=== PATIENT | female | born 1960 | race Caucasian/White ===

== ENCOUNTER 2025-09-17 07:33 | Inpatient (IN) | payer MEDICARE, SELFPAY ==
[2025-09-17] VITALS (11 sets, daily range): BP systolic 116–165; BP diastolic 64–105; BMI 35.5; BMI 34.6
[2025-09-17] MEDS: ATIVAN 1 MG IV (03:17)
[2025-09-17] MEDS: NSS (PRESERVATIVE FREE) 0.5 ML IV (03:18)
[2025-09-17 03:24] LABS: Hematocrit 42.6 % (37.0-47.0); Hemoglobin 12.9 g/dL (12.0-16.0); Mean Corp Hgb Conc. 30.3 g/dL (33.0-37.0); Mean Corpuscular Volume 91.8 fL (81.0-99.0); Nucleated Red Blood Cells % 0 %; Platelet Count 336 10^3/uL (130-400); Red Cell Dist. Width 13.3 % (11.5-14.5)
[2025-09-17 03:34] LABS: ALT (SGPT) 23 U/L (0-35); AST (SGOT) 25 U/L (14-36); Albumin 4.4 g/dl (3.5-5.0); Alkaline Phosphatase 70 U/L (38-126); Blood Urea Nitrogen 16 mg/dl (7-17); Calcium 9.4 mg/dl (8.4-10.2); Carbon Dioxide 37 mmol/L (22-30); Chloride 95 mmol/L (98-107); Estimated Creatinine Clearance 102 ml/min; Glucose 127 mg/dl (70-99); Potassium 4.6 mmol/L (3.5-5.1); Sodium 138 mmol/L (135-145); Total Protein 7.1 g/dl (6.3-8.2); eGFR > 60.00
[2025-09-17 03:35] LABS: INR 0.88; PT 12.1 Sec (11.4-14.6)
[2025-09-17 03:56] LABS: Troponin I < 0.012 ng/ml
[2025-09-17 04:04] LABS: TSH 2.07 uIU/ml (0.47-4.68)
[2025-09-17] MEDS: DECADRON 10 MG IV (05:43)
[2025-09-17] MEDS: DUONEB 3 ML INH ×4 (05:44→18:00)
--- NOTE | 2025-09-17 05:52 | ED.GENMED ---
History of Present Illness
General
Chief Complaint: Breathing Problem
Source: patient and ambulance crew
Exam Limitations: none
Time Seen by Provider: 09/17/25 02:45
Nursing documentation reviewed up to this point in time: agreed with
History of Present Illness
History of Present Illness:
Note:
CHIEF COMPLAINT(S)
Difficulty breathing and chest discomfort.
HISTORY OF PRESENT ILLNESS
The patient is a 65-year-old male with a history of Chronic Obstructive Pulmonary Disease (COPD) who presents with difficulty breathing and discomfort in the chest. The patient reports cessation of smoking nine months prior. Symptoms began after
consuming an excessive amount of cookies, specifically finishing an entire box. The patient describes the chest discomfort as mild, located straight across the chest, extending to the neck, throat, and right arm and shoulder. The patient is on home
oxygen therapy, typically using two and a half liters per minute but has increased it to three and a half liters per minute due to worsening symptoms. He denies any recent hospitalizations or surgeries since 2007.
SOCIAL HISTORY
The patient reports smoking cessation nine months ago. He lives alone.
ALLERGIES
Sulfate.
PHYSICAL EXAM
General: Alert, no acute distress.
Skin: Warm, dry.
Head: Normocephalic, atraumatic.
Neck: Supple, trachea midline.
Eye Ears, nose, mouth and throat: Oral mucosa moist.
Cardiovascular: Normal peripheral perfusion, No edema.
Respiratory: Respirations are unlabored. Wheezing in all lung milner.
Gastrointestinal: Abdomen nondistended
Back: Normal range of motion, Normal alignment.
Musculoskeletal: Normal ROM, normal strength.
Neurological: Alert and oriented to person, place, time, and situation, No focal neurological deficit observed.
Psychiatric: Cooperative, appropriate mood & affect.
PROBLEM LIST
Acute:
- Difficulty breathing
- Chest discomfort
Chronic:
- Chronic Obstructive Pulmonary Disease (COPD)
PLAN
- Monitor oxygen levels and adjust home oxygen therapy as necessary.
- Assess and monitor for progression of respiratory symptoms.
- Consider dietary modifications and counseling due to reported excessive consumption of cookies.
DIFFERENTIAL DIAGNOSIS
The Differential Diagnosis includes, in no particular order and is not limited to:
1. Exacerbation of Chronic Obstructive Pulmonary Disease (COPD)
2. Gastroesophageal reflux disease (GERD)
3. Acute Coronary Syndrome
4. Pulmonary Embolism
5. Pneumonia
6. Heart Failure
7. Anxiety Disorder
8. Musculoskeletal pain
9. Costochondritis
10. Heartburn/acid reflux
Disposition:
SUMMARY OF ENCOUNTER
The patient is a 65-year-old female with a history of COPD who presented to the emergency department with difficulty breathing consistent with exacerbation of her COPD. She was administered two albuterol nebulizer treatments and one dose of
ipratropium bromide prior to a third dose of ipratropium bromide. Despite these treatments, the patient continued to wheeze and experience labored breathing, necessitating further intervention.
DISPOSITION
Admit
ASSESSMENT
Acute exacerbation of Chronic Obstructive Pulmonary Disease (COPD)
EMERGENCY TREATMENTS ADMINISTERED
The patient received two albuterol nebulizations and one ipratropium bromide nebulization followed by an additional ipratropium bromide nebulization due to persistent symptoms.
PLAN
Admit the patient to the hospital for management of COPD exacerbation, monitor respiratory status, and continue treatment with bronchodilators and any other necessary supportive care.
MEDICATION RECONCILIATION
- Administered: Albuterol nebulization
- Administered: Ipratropium bromide nebulization
MEDICAL DECISION MAKING
- Number and Complexity of Problems Addressed: Chronic conditions affecting care include COPD exacerbation.
- Data:
- Category 1: Reviewed emergency treatment response to bronchodilator therapy (albuterol and ipratropium bromide).
- Risk: The decision to admit the patient due to the acute exacerbation of COPD, indicating a high risk of morbidity and necessity for continued inpatient management.
DIAGNOSIS
Chronic Obstructive Pulmonary Disease (COPD) exacerbation, ICD-10: J44.1
Phy Exam
Physical Exam
Physical Exam:
.
Scores
Heart Failure Risk
Heart Failure Risk Score: Not Applicable
Course
Orders/Labs/Results
Orders:
Orders
09/17/25 02:53
EKG [Electrocardiogram (*1)] Urgent
Reason for Study: Chest Pain
EKG- Treatment ONCE
09/17/25 03:06
Cardiac Monitoring- Treatment ONCE
Lorazepam [Ativan] 1 mg IV NOW STA
CR Chest - 2 Views Urgent
Comment:
Reason For Exam: cp
09/17/25 03:12
Complete Blood Count/With Diff Urgent
Comprehensive Metabolic Panel Urgent
NT-proBNP Urgent
Prothrombin Time Urgent
TSH Urgent
Troponin I Urgent
09/17/25 03:15
0.9% Sodium Chloride [Nss (Preservative Free)] 0.5 ml IV ONCE ONE
09/17/25 05:40
Dexamethasone Sod Phosphate [Decadron] 10 mg IV NOW STA
Ipratropium/Albuterol Sulfate [Duoneb] 3 ml INH R NOW ONE
09/17/25 Breakfast
Cholesterol Lowering
At Your Request: Full Participation
Cholesterol Lowering: Sodium, 2 Gram
09/17/25 07:06
Admit/Transfer Patient As Directed
Co-Sign Provider:
Level of Care: Inpatient admission
Assign to:: Medical/Surgical
Physician / Group: Eleazar
Diagnosis: COPD exacerbation
Reason for Hospitalization: COPD exacerbation
Expected length of stay greater than two midnights?: Yes
ELOS- Estimated Length of Stay in days: 2
I certify the patient meets the requirements for IP care: Yes
PRN Pain Medication Management As Directed
May give lesser potent ordered pain med per pt: Yes
preference::
Protocol:: Medication orders for pain may be administered in a
manner that supports deferring to patient preference
when the pt is:
- Requesting an ordered lesser potent pain medication.
Least to most potent pain medications are defined
as: acetaminophen < NSAID < tramadol < opioids
(morphine, oxycodone, hydromorphone).
- Requesting a lesser dose of the same medication IF
ORDERED.
- Requesting a less intrusive route of administration
if both routes are prescribed by the provider (PO <
IV).
09/17/25 07:07
Code Status As Directed
Resuscitation Status: Full Code
09/17/25 07:24
COVID-19 Antigen Stat
Source: Nasal Swab
D-Dimer Stat
Influenza A+B Rapid Molecular Stat
ADONAY Source: Nasal Swab
Specimen Description:
09/17/25 10:20
Acetaminophen [Tylenol] 650 mg PO Q4HPRN PRN
Albuterol Nebs [Ventolin Nebules] 2.5 mg INH R Q3HPRN PRN
Bisacodyl [Dulcolax] 10 mg RECTAL [id number] PRN
Budesonide/Formoterol 160/4.5 [Symbicort 160/4.5 Mcg Inhaler] 2 puff INH R BID
Docusate W/Senna [Senokot-S] 1 tablet PO BIDPRN PRN
Guaifenesin/Dextromethorphan [Robitussin Dm] 5 ml PO Q4HPRN PRN
Ipratropium/Albuterol Sulfate [Duoneb] 3 ml INH R QID
Ketorolac [Toradol] 10 mg IV Q6HPRN PRN
Lorazepam [Ativan] 0.5 mg PO DAILY PRN
Mag Hydrox/Al Hydrox/Simeth [Maalox] 30 ml PO Q6HPRN PRN
MethylPREDNISolone PF [Solu-Medrol Pf] 40 mg IV Q6H
Ondansetron Injectable [Zofran] 4 mg IV Q6HPRN PRN
Polyethylene Glycol Powder [Miralax] 17 grams PO DAILYPRN PRN
09/17/25 10:20
Activity As Directed
Activity Level: With Assistance
Change Attending Physician As Directed
Change attending physician to: Dr. Wong Francois
Vital Signs As Directed
Frequency: Per unit guidelines
O2 Therapy [RESP] Routine
Nasal Cannula Liter Flow: 2 LPM
Titrate/Wean O2 to maintain O2 sat greater than (%): 90
Pulse Ox/cont/shift [RESP] Routine
Quantity: 1
DX Deep Vein Thrombosis Video Routine
09/17/25 18:00
Enoxaparin Sodium [Lovenox] 40 mg SC QPM
09/18/25 06:13
Basic Metabolic Panel IN AM
Complete Blood Count/No Diff IN AM
Abnormal Lab Results
09/17/25 09/17/25
03:12 07:24
WBC 14.6 H 10^3/uL
(4.8-10.8)
MCHC 30.3 L g/dL
(33.0-37.0)
Abs Immat Gran (auto) 0.1 H 10^3/uL
(0-0.05)
Absolute Neuts (auto) 10.9 H 10^3/uL
(1.4-6.5)
Absolute Monos (auto) 1.0 H 10^3/uL
(0.1-0.6)
Lymphocytes % 15.1 L %
(20.5-51.1)
D-Dimer 0.56 H ug/mlFEU
(0.00-0.50)
Chloride 95 L mmol/L
(98-107)
Carbon Dioxide 37 H mmol/L
(22-30)
Creatinine 0.4 L mg/dL
(0.6-1.0)
Glucose 127 H mg/dl
(70-99)
09/17/25 03:12
09/17/25 03:12
Vital Signs
Initial and Last Documented VS:
Initial Vital Signs
Temp Pulse Resp BP Pulse Ox
97.9 F 107 18 149/105 100
09/17/25 02:46 09/17/25 02:46 09/17/25 02:46 09/17/25 02:46 09/17/25 02:46
Last Documented Vital Signs
Temp Pulse Resp BP Pulse Ox
98 F 82 16 126/76 97
09/18/25 23:23 09/18/25 23:23 09/18/25 23:23 09/18/25 23:23 09/18/25 23:23
*Pulse Oximetry
SaO2: 96
Nasal Cannula flow liters per minute: 6
Patient hypoxic: no
*Critical Care Note
Total Time (30-74mins, 75-104mins- exclusive of procedures): Not Applicable
ED Attending Note
-
Portions of this chart may have been created with voice recognition software.� Occasional wrong word or��sound alike� substitutions may have occurred due to the inherent limitations of voice recognition software.
Discharge Plan
Departure
Patient Disposition: Admit
Date of Disposition: 09/17/25
Time of Disposition: 05:52
Presentation/result/management discussed w/ accepting MD/DO: Hospitalist
Discharge Problem:
Acute exacerbation of chronic obstructive pulmonary disease (COPD)
Interventions
Interventions:
*General Assessment Last Done: 09/17/25 02:46
*Neglect/Abuse Screening Last Done: 09/17/25 02:46
*ED Influenza Vaccine History Last Done: 09/17/25 02:46
[facility] Fall Risk Assessment Tool Last Done: 09/17/25 03:03
*Risk Screen - Suicide (C-SSRS) Last Done: 09/17/25 02:46
*Nursing Disposition Last Done: 09/17/25 10:10
ED- Cardiac Assessment Last Done: 09/17/25 05:30
ED- Pulmonary Assessment Last Done: 09/17/25 05:30
Discharge Date and Time
Discharge Date/Time: 09/17/25 10:10
--- NOTE | 2025-09-17 06:55 | HPS.HSE ---
Addendum entered and electronically signed by Anabel Bush MD 09/17/25 07:23:
Admitting to [facility] pending abg results which may reveal need for bipap and upgrading to IMU
Original Note:
Family Physician
-
Family Physician: * NONE
Chief Complaint
-
Shortness of breath
History of Present Illness
Patient is a 65-year-old female with past medical history notable for COPD, hyperlipidemia, mitral valve prolapse, history of intermittent palpitations with no abnormalities on EKG on echo who presents to the emergency department with 1 day of
worsening respiratory symptoms.
Patient is not aware of any sick contact. She developed worsening shortness of breath compared to baseline. At baseline she states that she is on her oxygen concentrator at home. She has been using it for several months since she quit smoking
earlier this year. Patient is a long-term smoker prior to that and she started smoking she was she was at age 13. She has a diagnosis of asthma somewhere on her chart for she denies history of asthma. She states she uses Combivent as well as
albuterol inhalers. Despite use of her inhalers she has not been getting better recently.
She reported that she started having pain in bilateral shoulder blades yesterday. This associated with worsening shortness of breath and wheezing. She reports that she does have a cough but it is productive of scant amount of clear phlegm. She
has not had any fevers or chills. She is not having any nausea or vomiting.
In the emergency department she was afebrile with temp of 91.9, blood pressure was 127/68 with a pulse rate of 102. Respiratory rate was 23. She is satting 97% on 4 L. X-ray showed no clear infiltrates, pulmonary edema or pleural effusion. ECG
with sinus tachycardia rate of 106 otherwise unremarkable. Troponin was negative. BNP was negative.
White count was 14.6, hemoglobin 12.9 and plate count of 236. Electrolytes notable for a bicarb of 37 otherwise unremarkable. Glucose was normal.
Medical History
Past Medical History
Past Medical History: Reports COPD (Currently on oxygen concentrator continuously at home.), Hypercholesterolemia and Valvular Disease (Mitral valve prolapse)
Past Surgical History: Reports ( x 2)
Social History
Tobacco: Former Smoker (Smoked since age 13, quit earlier this year)
Alcohol: None
Drug: None
Living: With Family
Family History
Family History: Not pertinent
Allergies / Home Medications
Allergies reflects when Allergies were last updated in [email or web address].
Home Medications with original date entered in [email or web address]
Allergy/Medication List:
Allergies
Allergy/AdvReac Type Severity Reaction Status Date / Time
Sulfa (Sulfonamide Allergy Unknown Unknown Verified 09/17/25 03:11
Antibiotics)
Home Medications
albuterol sulfate 90 mcg/actuation aerosol inhaler 2 inh inhalation Q6H PRN wheezing 09/17/25
ipratropium 20 mcg-albuterol 100 mcg/actuation mist for inhalation (Combivent Respimat) 2 puff inhalation Q6H 09/17/25
umeclidinium 62.5 mcg-vilanterol 25 mcg/actuation powdr for inhalation (Anoro Ellipta) inhalation 09/17/25
Review of Systems
-
Constitutional: Reports No Symptoms
EENT: Reports No Symptoms
Respiratory: Reports No Symptoms
Cardiac: Reports No Symptoms
Abdomen/GI: Reports No Symptoms
: Reports No Symptoms
Musculoskeletal: Reports No Symptoms
Skin: Reports No Symptoms
Neurological: Reports No Symptoms
Endocrine: Reports No Symptoms
Hematologic/Lymphatic: Reports No Symptoms
Psych: Reports No Symptoms
Physical Exam
Vital Signs
Vital Signs
Temp Pulse Resp BP Pulse Ox
97.9 F 102 23 127/68 96
09/17/25 02:46 09/17/25 06:00 09/17/25 06:00 09/17/25 06:00 09/17/25 06:00
Physical Exam
General: Well Developed, Comfortable and Respiratory Distress
HEENT: NormoCephalic, Moist mucous membranes, Atraumatic and Oxygen
Respiratory: Wheezes
Cardiac: S1/S2, Regular Rhythm and Tachycardia; No Murmur or Rub
GI: Soft, Non Tender, Non Distended and Normal Bowel Sounds; No Organomegaly
Rectal: Deferred by Provider
Genito-urinary: Deferred by me
Musculoskeletal: No Clubbing, No Cyanosis and No Edema
Skin: No Rash
Neuro: Awake, Oriented and Nonfocal/grossly intact
Psych: Calm
Laboratory Results
-
09/17/25 03:12
09/17/25 03:12
Laboratory Results
PT 12.1 Sec (11.4-14.6) 09/17/25 03:12
INR 0.88 09/17/25 03:12
Total Bilirubin 0.4 mg/dl (0.2-1.3) 09/17/25 03:12
AST 25 U/L (14-36) 09/17/25 03:12
ALT 23 U/L (0-35) 09/17/25 03:12
Alkaline Phosphatase 70 U/L (38-126) 09/17/25 03:12
Troponin I < 0.012 ng/ml 09/17/25 03:12
Data Reviewed
-
Diagnostic Radiology: Image Personally Visualized and interpreted
Medical Tests (Nuc Med, Echo, EKG etc): Image Personally Visualized and interpreted
Lab Data: Labs Reviewed by me
Old Records: Reviewed
Impression/Plan
-
IMPRESSION:
This is a 67-year-old female with past medical history of COPD on oxygen at home who presents to the department with worsening shortness of breath and a nonproductive cough. No fevers or chills. X-ray without any acute infiltrates. She is
currently satting 97% on 4 L. She still has some mild increased work of breathing and persistent wheezes bilaterally. She also has decreased breath sounds. Serum bicarb is elevated at 37 suggestive of chronic CO2 retention. She is easily
arousable but somewhat somnolent at this time. She does not use BiPAP at home.
PLAN:
COPD exacerbation�no clear trigger. Likely for viral etiology. No productive cough. Did complain of pleurit pain in her shoulder blades which brought her in
� Admit to telemetry for now
� Obtain ABG, d-dimer
� Check COVID and flu test
� Continue with IV Solu-Medrol 40 mg every 6 hours
� Continue albuterol every 3 hours as needed wheezing
� Continue DuoNeb every 6 hours standing
� Continue patient's home Combivent for now
� Will start azithromycin p.o. 500 mg daily
� Supplemental oxygen to keep sats greater than 93%
Hyperlipidemia
� Patient states that she is on supplements and is intolerant of all statins and ezetimibe and cannot afford PCSK9 inhibitor
� Low-cholesterol diet for now
DVT prophy�Lovenox subcu
CODE STATUS�full code
--- NOTE | 2025-09-17 07:30 | RESPNOTE ---
attempted ABG collection. pt refused procedure, stating ' take it out, it hurts'
ABG not collected.
RN taking care of pt notified.
[2025-09-17 07:48] LABS: COVID-19 Antigen Negative (Negative)
[2025-09-17 08:05] LABS: D-Dimer 0.56 ug/mlFEU (0.00-0.50)
--- NOTE | 2025-09-17 08:26 | PHANOTE ---
MED REC NOTE - ATTEMPTED TO CONFIRM PT MEDS. PT NOT IN [facility] & UNABLE TO ANSWER QUESTIONS. PUT IN MOST RECENT FILLED MEDS FROM PHARMACY RECORDS - [facility]
--- NOTE | 2025-09-17 08:30 | EDCM ---
Chart reviewed
CM attempted to talk with pt at ED bedside to complete IA but pt declined at this time
[2025-09-17] MEDS: SOLU-MEDROL PF 40 MG IV (10:54)
[2025-09-17] MEDS: ATIVAN 0.5 MG PO (10:54)
[2025-09-17] MEDS: SYMBICORT 160/4.5 MCG INHALER 2 PUFF INH (10:56)
[2025-09-17] MEDS: DUONEB INH ×3 (11:16→22:30)
--- NOTE | 2025-09-17 12:00 | PTCARENOTE ---
Patient uncooperative with med rec and admission questions.
--- NOTE | 2025-09-17 12:15 | PTCARENOTE ---
Several prescription pill bottles noted sitting out on top of patient's open bag. RN asking patient about home medications. Patient becoming very upset, stating that staff is invading her privacy. RN explaining that hospital policy requires that no
home medications be left at the bedside. Patient stating she is leaving. Patient stating that she had the medications hidden because she wants to be able to take her own medications when she wants to. RN contacting [facility] manager nursing home.
Director on unit to explain hospital policy to patient. Dr. Francois also at bedside. Patient then agreeable with sending home medications to pharmacy. Patient also agreeable with sending valuable to be locked with security. Patient now resting in
bed.
[2025-09-17] MEDS: VENTOLIN NEBULES 2.5 MG INH (12:43)
--- NOTE | 2025-09-17 12:55 | W.PN.HOSP.TC ---
Today's Communication/Plan
-
See plan
Assessment / Plan
Assessment / Plan
Impression.
Acute on chronic hypoxemic respiratory failure secondary to COPD exacerbation
Acute COPD exacerbation secondary to mild bronchitis.
Severe anxiety and benzodiazepine dependence
Dyslipidemia
Prediabetes
Obesity due to excess of calories with BMI of 34.6
Plan
Acute on chronic hypoxemic respiratory failure secondary to COPD exacerbation.
Chronic hypoxic possibly hypercarbic (chronic compensatory metabolic alkalosis) respiratory failure on home O2 at 2 to 3 L
Patient reports worsening shortness of breath over the last 2 to 3 days prior to presentation with persistent wheezing. Mild nonproductive cough. Denies fever.
Home regimen Anoro and rescue inhaler
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
Chest x-ray with bilateral interstitial pattern, possibly chronic. No old studies to compare.
COVID and influenza negative
Mild leukocytosis
No evidence for respiratory distress, although extremely anxious. Currently on 4 L of nasal cannula oxygen.
Exam with bilateral expiratory wheezing.
Check ABG
Start empiric coverage with Zithromax.
Continue pulse dose of corticosteroids transition off Solu-Medrol to Decadron. Continue slow taper
[place]
Mucolytic
If no reasonable improvement over the next 24 to 48 hours, consider pulmonology evaluation and additional imaging with CT
Bilateral diffuse interstitial pattern infiltrate on chest x-ray.
No prior history of cardiovascular disease
No evidence for volume overload.
Normal pro CHF BNP and troponin
Follow-up imaging as above
Severe anxiety with benzodiazepine dependence.
Reports average dose of alprazolam close to 1 mg prior to admission.
Start alprazolam 0.5 mg every 8 hours as needed and titrate.
Prediabetes.
Check hemoglobin A1c
Expected hyperglycemia with corticosteroids
Start basal bolus protocol
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
DVT prophylaxis with Lovenox
Anticipated Discharge: 24 - 48 hours
Subjective/Interval History
-
Date of Service: September 17, 2025
Objective Data
-
Labs:
Laboratory Results
09/17/25 09/17/25
03:12 07:06
WBC 14.6 H
Hgb 12.9
Hct 42.6
Plt Count 336
PT 12.1
INR 0.88
HCO3 Pending
Sodium 138
Potassium 4.6
Chloride 95 L
Carbon Dioxide 37 H
BUN 16
Creatinine 0.4 L
Glucose 127 H
Calcium 9.4
Total Bilirubin 0.4
AST 25
ALT 23
Alkaline Phosphatase 70
Vital Signs:
Vital Signs
Temp Pulse Resp BP Pulse Ox
97.7 F 102 20 122/74 92
09/17/25 10:30 09/17/25 12:46 09/17/25 12:46 09/17/25 10:30 09/17/25 12:46
Physical Exam
-
General: Well Developed and No Apparent Distress
HEENT: Normocephalic, Atraumatic and Moist Mucous Membranes
Respiratory: Wheezes (Diffuse expiratory)
Cardiac: Regular Rhythm and S1/S2; Negative Murmur, Rub or Gallop
GI: Soft, Nontender, Nondistended and Normal Bowel Sounds; Negative Organomegaly
Rectal: Deferred by Provider
Musculoskeletal: No Clubbing, No Cyanosis and No Edema
Skin: Negative Rash
Neuro: Awake, Alert, Oriented and Nonfocal/Grossly Intact
Psych: Anxious
[2025-09-17] MEDS: ZITHROMAX PO (16:25)
--- NOTE | 2025-09-17 16:34 | CM ---
CM received consult to see patient to provide Advance Directive information. CM attempted to see patient in her room but she was sleeping. Will follo up on 09/18.
[2025-09-17] MEDS: SYMBICORT 160/4.5 MCG INHALER INH (17:46)
[2025-09-17] MEDS: XANAX 0.5 MG PO (18:00)
[2025-09-17] MEDS: LOVENOX SC (18:23)
[2025-09-17] MEDS: DECADRON 4 MG IV (18:23)
[2025-09-17 18:29] LABS: Glucose - Point of Care 210 mg/dl (70-99)
[2025-09-17] MEDS: NOVOLOG FLEXPEN-LOW RESISTANCE 2 UNITS SC (19:23)
--- NOTE | 2025-09-17 22:37 | PTCARENOTE ---
Addendum entered by Khoa Montemayor RN 09/18/25 02:40:
RN entered room to inquire if patient wanted to take 0200 Decadron as pt said she will think about it and let me know when it is time. Upon asking initially, pt agreeable to Decadron and requested Xanax as well. As nurse went to retrieve said
medications, pt yelled out, 'actually what time is your shift over I want to wait to take the medication until you are gone.' RN educated pt that another nurse can administer medication. Pt agreeable. This RN asked RN Kolton to retrieve medication and
administer. This RN entered room with RN Kolton to explain he will administer her medications, pt proceeded to yell, 'get out of here you can go bye bye.' Pt then refused Decadron and would only take her Xanax for RN Kolton once this RN left the room.
Nursing air cargo ground crew supervisor Candida made aware.
Original Note:
This RN performed rounds at change of shift. Upon finishing assessment on pt, RN made pt aware that a dose of Decadron will be due for administration at 0200. Pt started questioning this RN on statistics and percentages of pts on medication and
saying she does not trust it. This RN educated pt about medication and its usage but that statistical percentages unaware of and cannot give false information if unknown. Pt stated to RN, 'look at you with your back against the wall now when you
don't know percentages of pts on this drug.' Pt then educated this was not appropriate therapeutic communication and again that this RN cannot give false info if unaware of a statistic. Pt then inquiring about Xanax and next dose. Pt educated that
next dose will be 0200 as it was given at 1800 and medication is q8. Pt called this RN back into room multiple times inquiring about next dose of Xanax. Each time pt educated on timing of medication by this RN. Pt used call wilhelm again, this RN went
to bedside, pt requesting nursing air cargo ground crew supervisor. YARN FINISHER already on floor asked to see pt in regards to medication. Upon entering room YARN FINISHER told by pt to leave and only nursing air cargo ground crew supervisor was to be there. Nursing air cargo ground crew supervisor Candida made aware. Captain'S Assistant and YARN FINISHER
at bedside explained to pt timing of drugs and when doses can be given.
[2025-09-17 22:43] LABS: Glucose - Point of Care 144 mg/dl (70-99)
[2025-09-18] MEDS: XANAX 0.5 MG PO (02:33)
[2025-09-18] MEDS: DECADRON IV (02:37)
[2025-09-18 07:12] LABS: Hematocrit 37.7 % (37.0-47.0); Hemoglobin 11.9 g/dL (12.0-16.0); Mean Corp Hgb Conc. 31.6 g/dL (33.0-37.0); Mean Corpuscular Volume 90.6 fL (81.0-99.0); Platelet Count 316 10^3/uL (130-400); Red Cell Dist. Width 13.4 % (11.5-14.5)
[2025-09-18 07:42] VITALS: BP 111/51
[2025-09-18 07:44] LABS: Blood Urea Nitrogen 13 mg/dl (7-17); Calcium 9.5 mg/dl (8.4-10.2); Carbon Dioxide 35 mmol/L (22-30); Chloride 97 mmol/L (98-107); Estimated Creatinine Clearance 101 ml/min; Glucose 128 mg/dl (70-99); Potassium 5.7 mmol/L (3.5-5.1); Sodium 137 mmol/L (135-145); eGFR > 60.00
[2025-09-18] MEDS: DUONEB 3 ML INH ×2 (07:56→11:17)
[2025-09-18] MEDS: SYMBICORT 160/4.5 MCG INHALER INH ×3 (07:57→20:26)
[2025-09-18 08:11] LABS: Glucose - Point of Care 118 mg/dl (70-99)
[2025-09-18] MEDS: ZITHROMAX PO (08:14)
[2025-09-18] MEDS: NOVOLOG FLEXPEN-LOW RESISTANCE SC ×2 (08:14→12:18)
--- NOTE | 2025-09-18 08:50 | W.PN.HOSP.TC ---
Today's Communication/Plan
-
Trial of Mucomyst
Assessment / Plan
Assessment / Plan
Impression.
65-year-old female with history of COPD, hyperlipidemia, mitral valve prolapse, and intermittent palpitations (normal prior EKG/echo) presents with 1 day of worsening shortness of breath.
On home O? for several months since quitting smoking earlier this year; long-term smoker since age 13.
Uses Combivent and albuterol inhalers; reports poor response recently.
Associated symptoms: bilateral shoulder blade pain, wheezing, mild productive cough with scant clear sputum.
Denies fever, chills, nausea, vomiting, or sick contacts.
ED findings:
Vitals: Afebrile (91.9�F), BP 127/68, HR 102, RR 23, SpO? 97% on 4 L NC.
CXR: No infiltrates, pulmonary edema, or effusion.
ECG: Sinus tachycardia (rate 106), otherwise normal.
Labs: WBC 14.6, Hgb 12.9, Plt 236, bicarb 37, glucose normal. Troponin and BNP negative.
Admitted under hospital service, started on IV steroid, breathing treatment, had an anxiety and was given Xanax.
Assessment/plan
Acute on Chronic Hypoxemic Respiratory Failure
Secondary to COPD exacerbation.
Chronic hypoxic, possibly hypercarbic respiratory failure with chronic compensatory metabolic alkalosis.
On home O? at 2�3 L.
Reports worsening shortness of breath for 2�3 days prior to presentation, persistent wheezing, mild nonproductive cough, denies fever.
Home regimen: Anoro and rescue inhaler.
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
Chest X-ray: Bilateral interstitial pattern, possibly chronic; no prior studies for comparison.
COVID and influenza: Negative.
Mild leukocytosis.
No evidence of respiratory distress, but patient is extremely anxious.
Currently on 4 L nasal cannula oxygen.
Exam: Bilateral expiratory wheezing.
Plan:
Continue azithromycin.
Continue pulse dose corticosteroids; transition from Solu-Medrol to Decadron with slow taper.
Short-acting beta agonist (HOLLAND).
Trial of Mucomyst
Interstitial Pattern on Chest X-ray
Bilateral diffuse interstitial infiltrates.
No prior history of cardiovascular disease.
No evidence of volume overload.
Normal pro-BNP and troponin.
Follow-up imaging as above.
Severe Anxiety with Benzodiazepine Dependence
Reports average alprazolam dose ~1 mg prior to admission.
change alprazolam 1 mg every 8 hours as needed.
Prediabetes
Check hemoglobin A1c.
Anticipate hyperglycemia due to corticosteroids.
Initiate basal-bolus insulin protocol.
Dyslipidemia
On Vascepa and fish oil prior to admission.
Hyperkalemia.
Monitor
CODE STATUS: Full code
DVT prophylaxis: Lovenox
Diet: Cardiac diet.
Disposition: Trial of Mucomyst
Total time spent on today's encounter was 55 minutes which included time spent in counseling the patient/family regarding diagnosis and treatment plan as listed above, goals of care, and symptom management. Case was discussed with nursing staff,
specialists, and care coordinators/case management. All labs and imaging personally reviewed by me. Remainder the time spent in detailed review of previous records, lab data, imaging, and other medical provider documentation.
Part of this note was created using voice recognition system. Occasional wrong word or �sound alike� substitutions may have inadvertently occurred due to the inherent limitations of voice recognition software. If noted kindly bring it to my
attention for correction.
Anticipated Discharge: 24 - 48 hours
Subjective/Interval History
-
Date of Service: September 18, 2025
Patient seen and examined at bedside, denies any chest pain , shortness of breath Improved, no abdominal pain, no nausea, no vomiting, no diarrhea or constipation.
Trial of Mucomyst
Objective Data
-
Labs:
Laboratory Results
09/18/25
06:13
WBC 10.9 H
Hgb 11.9 L
Hct 37.7
Plt Count 316
Sodium 137
Potassium 5.7 H
Chloride 97 L
Carbon Dioxide 35 H
BUN 13
Creatinine 0.4 L
Glucose 128 H
Calcium 9.5
Vital Signs:
Vital Signs
Temp Pulse Resp BP Pulse Ox
97.7 F 114 25 111/51 95
09/18/25 07:42 09/18/25 08:08 09/18/25 08:08 09/18/25 07:42 09/18/25 08:08
I&O
09/17/25 09/18/25 09/19/25
06:59 06:59 06:59
Intake Total 960 / 960
Balance 960 / 960
Physical Exam
-
General: Well Developed, Well Nourished, No Apparent Distress and Comfortable
HEENT: Normocephalic, Atraumatic, Moist Mucous Membranes, No Ptosis, PERRLA and Nose Appears Normal
Respiratory: Wheezes, Rales and Non Labored Respirations
Cardiac: Regular Rhythm and S1/S2
Breast: Deferred by me
GI: Soft, Nontender, Nondistended and Normal Bowel Sounds
Genito-urinary: No Costovertebral Tender
Musculoskeletal: No Clubbing, No Cyanosis and No Edema
Skin: Warm
Neuro: Awake, Alert, Oriented, AO x 3 and No Motor Deficits
Psych: Calm
Data Reviewed
-
Diagnostic Radiology: Image personally visualized and interpreted and Report Reviewed by me
CT Scan: Image personally visualized and interpreted and Report Reviewed by me
Ultrasound: Image personally visualized and interpreted and Report Reviewed by me
MRI: Image personally visualized and interpreted and Report Reviewed by me
Medical Tests (Nuc Med, Echo etc): Image personally visualized and interpreted and Report Reviewed by me
Labs: Labs Reviewed by me
Old Records: Reviewed
[2025-09-18] MEDS: DECADRON 4 MG IV ×2 (10:14→17:11)
[2025-09-18] MEDS: XANAX 1 MG PO ×2 (10:41→18:45)
[2025-09-18] MEDS: MUCOMYST 20% 2 ML INH (11:18)
[2025-09-18 12:07] LABS: Glucose - Point of Care 95 mg/dl (70-99)
[2025-09-18] MEDS: MAGNESIUM OXIDE 400 MG PO (13:09)
[2025-09-18 13:17] LABS: Glycohemoglobin (HgbA1c) 6.0 % (4.0-5.9)
--- NOTE | 2025-09-18 13:55 | RESPNOTE ---
Pt has an order to use own Pro-air inhaler from home and to be left bedside. Inhaler labeled and retrieved from pharmacy, pt's own inhaler left bedside. RN aware. Pt instructed to notify respiratory when needing to take rescue inhaler for scanning
and documenting purposes.
[2025-09-18] MEDS: NON-FORMULARY ITEM INH (14:05)
[2025-09-18] MEDS: DUONEB INH ×2 (14:12→20:26)
[2025-09-18 15:40] VITALS: BP 108/45
[2025-09-18 16:55] LABS: Glucose - Point of Care 184 mg/dl (70-99)
[2025-09-18] MEDS: NOVOLOG FLEXPEN-LOW RESISTANCE 1 UNITS SC (17:11)
[2025-09-18] MEDS: LOVENOX 40 MG SC (17:12)
[2025-09-18] MEDS: NON-FORMULARY ITEM 2 INH INH (18:11)
[2025-09-18 20:25] LABS: Hepatitis C Antibody Negative (Negative)
[2025-09-18 21:28] LABS: Glucose - Point of Care 130 mg/dl (70-99)
[2025-09-18 23:23] VITALS: BP 126/76
[2025-09-19] MEDS: DECADRON 4 MG IV (03:23)
[2025-09-19] MEDS: NON-FORMULARY ITEM INH ×3 (04:21→20:17)
[2025-09-19 07:18] VITALS: BP 130/83
[2025-09-19 07:50] LABS: Glucose - Point of Care 135 mg/dl (70-99)
[2025-09-19] MEDS: ZITHROMAX PO ×2 (08:24→08:27)
[2025-09-19] MEDS: NOVOLOG FLEXPEN-LOW RESISTANCE SC ×2 (08:24→12:25)
[2025-09-19] MEDS: MAGNESIUM OXIDE 400 MG PO (08:24)
[2025-09-19] MEDS: NON-FORMULARY ITEM 2 INH INH (08:35)
[2025-09-19] MEDS: DUONEB 3 ML INH ×3 (08:53→20:17)
[2025-09-19] MEDS: SYMBICORT 160/4.5 MCG INHALER 2 PUFF INH ×2 (08:54→20:17)
[2025-09-19] MEDS: XANAX 1 MG PO ×2 (09:30→17:35)
[2025-09-19 09:39] LABS: Blood Urea Nitrogen 15 mg/dl (7-17); Calcium 9.4 mg/dl (8.4-10.2); Carbon Dioxide 35 mmol/L (22-30); Chloride 98 mmol/L (98-107); Estimated Creatinine Clearance 101 ml/min; Glucose 139 mg/dl (70-99); Potassium 5.3 mmol/L (3.5-5.1); Sodium 137 mmol/L (135-145); eGFR > 60.00
[2025-09-19] MEDS: DECADRON IV (10:29)
--- NOTE | 2025-09-19 11:15 | CM ---
CM met with patient at bedside. IA completed. Patient is being treated for acute on chronic hypoxemic respiratory failure. She lives alone in a 3 story house(resides on 2nd and 3rd floors). Prior to hospitalization she was independent with
ambulation using a cane and independent with self-care. She has home O2 through [employer]. She has a supportive son. Her son will provide transportation home when discharged. She is agreeable to home health. She is also interested in getting a
RW.
PCP: Dr. Charline Garrison
Pharmacy: [facility] in [place]
Plan: home, home health
[2025-09-19] MEDS: DUONEB INH (11:28)
--- NOTE | 2025-09-19 11:41 | PTCARENOTE ---
Pt OOB to [facility] - dyspneic on exertion. Breathing unlabored at rest. 93% on 3L NC. Pt feeling very anxious and relates it to steroids - hospitalist changed steroids from IV Decadron to PO prednisone. Pt asking for SNIFF test while here - pt
informed that per hospitalist this test only done outpatient.
[2025-09-19 12:13] LABS: Glucose - Point of Care 148 mg/dl (70-99)
[2025-09-19] MEDS: DELTASONE 50 MG PO (12:29)
--- NOTE | 2025-09-19 14:12 | W.PN.HOSP.TC ---
Today's Communication/Plan
-
Wean steroid to oral prednisone.
CTA chest shows no PE
Assessment / Plan
Assessment / Plan
Impression.
65-year-old female with history of COPD, hyperlipidemia, mitral valve prolapse, and intermittent palpitations (normal prior EKG/echo) presents with 1 day of worsening shortness of breath.
On home O? for several months since quitting smoking earlier this year; long-term smoker since age 13.
Uses Combivent and albuterol inhalers; reports poor response recently.
Associated symptoms: bilateral shoulder blade pain, wheezing, mild productive cough with scant clear sputum.
Denies fever, chills, nausea, vomiting, or sick contacts.
ED findings:
Vitals: Afebrile (91.9�F), BP 127/68, HR 102, RR 23, SpO? 97% on 4 L NC.
CXR: No infiltrates, pulmonary edema, or effusion.
ECG: Sinus tachycardia (rate 106), otherwise normal.
Labs: WBC 14.6, Hgb 12.9, Plt 236, bicarb 37, glucose normal. Troponin and BNP negative.
Admitted under hospital service, started on IV steroid, breathing treatment, had an anxiety and was given Xanax.
CT chest shows no PE
Assessment/plan
Acute on Chronic Hypoxemic Respiratory Failure
Secondary to COPD exacerbation.
Chronic hypoxic, possibly hypercarbic respiratory failure with chronic compensatory metabolic alkalosis.
On home O? at 2�3 L.
Reports worsening shortness of breath for 2�3 days prior to presentation, persistent wheezing, mild nonproductive cough, denies fever.
Home regimen: Anoro and rescue inhaler.
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
Chest X-ray: Bilateral interstitial pattern, possibly chronic; no prior studies for comparison.
COVID and influenza: Negative.
Mild leukocytosis.
No evidence of respiratory distress, but patient is extremely anxious.
Currently on 4 L nasal cannula oxygen.
Exam: Bilateral expiratory wheezing.
Plan:
Continue azithromycin.
Initiate started on IV steroid, then weaned to oral prednisone
Short-acting beta agonist (HOLLAND).
Trial of Mucomyst
CTA chest shows no PE.
Interstitial Pattern on Chest X-ray
Bilateral diffuse interstitial infiltrates.
No prior history of cardiovascular disease.
No evidence of volume overload.
Normal pro-BNP and troponin.
Follow-up imaging as above.
CTA chest shows no PE or acute
Severe Anxiety with Benzodiazepine Dependence
Reports average alprazolam dose ~1 mg prior to admission.
change alprazolam 1 mg every 8 hours as needed.
Prediabetes
Hemoglobin A1c 6.0.
Anticipate hyperglycemia due to corticosteroids.
ISS.
Dyslipidemia
On Vascepa and fish oil prior to admission.
Hyperkalemia.
Monitor
CODE STATUS: Full code
DVT prophylaxis: Lovenox
Diet: Cardiac diet.
Disposition: Wean steroid to oral prednisone.
CTA chest shows no PE
Total time spent on today's encounter was 55 minutes which included time spent in counseling the patient/family regarding diagnosis and treatment plan as listed above, goals of care, and symptom management. Case was discussed with nursing staff,
specialists, and care coordinators/case management. All labs and imaging personally reviewed by me. Remainder the time spent in detailed review of previous records, lab data, imaging, and other medical provider documentation.
Part of this note was created using voice recognition system. Occasional wrong word or �sound alike� substitutions may have inadvertently occurred due to the inherent limitations of voice recognition software. If noted kindly bring it to my
attention for correction.
Anticipated Discharge: Within 24 hours
Subjective/Interval History
-
Date of Service: September 19, 2025
Patient seen and examined at bedside, denies any chest pain , wheezing and shortness of breath Improved, no abdominal pain, no nausea, no vomiting, no diarrhea or constipation.
CTA chest came back shows no PE.
Objective Data
-
Labs:
Laboratory Results
09/19/25
08:00
Sodium 137
Potassium 5.3 H
Chloride 98
Carbon Dioxide 35 H
BUN 15
Creatinine 0.4 L
Glucose 139 H
Calcium 9.4
Vital Signs:
Vital Signs
Temp Pulse Resp BP Pulse Ox
98.0 F 77 16 130/83 94
09/19/25 07:18 09/19/25 07:18 09/19/25 07:18 09/19/25 07:18 09/19/25 08:54
I&O
09/18/25 09/19/25 09/20/25
06:59 06:59 06:59
Intake Total 960 / 960 1140 / 1140
Output Total 400 / 400
Balance 960 / 960 1140 / 1140 -400 / -400
Physical Exam
-
General: Well Developed, Well Nourished, No Apparent Distress and Comfortable
HEENT: Normocephalic, Atraumatic, Moist Mucous Membranes, No Ptosis, PERRLA and Nose Appears Normal
Respiratory: Wheezes, Rales and Non Labored Respirations
Cardiac: Regular Rhythm and S1/S2
Breast: Deferred by me
GI: Soft, Nontender, Nondistended and Normal Bowel Sounds
Genito-urinary: No Costovertebral Tender
Musculoskeletal: No Clubbing, No Cyanosis and No Edema
Skin: Warm
Neuro: Awake, Alert, Oriented, AO x 3 and No Motor Deficits
Psych: Calm
[2025-09-19 14:48] VITALS: BP 105/49
[2025-09-19 16:20] LABS: Glucose - Point of Care 152 mg/dl (70-99)
[2025-09-19] MEDS: LOVENOX 40 MG SC (17:35)
[2025-09-19] MEDS: NOVOLOG FLEXPEN-LOW RESISTANCE 1 UNITS SC (17:35)
[2025-09-19 20:45] LABS: Glucose - Point of Care 199 mg/dl (70-99)
[2025-09-19 23:50] VITALS: BP 133/72
[2025-09-20] MEDS: NON-FORMULARY ITEM INH ×4 (02:03→19:20)
[2025-09-20] MEDS: XANAX 1 MG PO ×2 (05:59→14:49)
[2025-09-20] MEDS: DUONEB 3 ML INH ×4 (06:05→19:20)
[2025-09-20 07:33] LABS: Hematocrit 39.9 % (37.0-47.0); Hemoglobin 12.4 g/dL (12.0-16.0); Mean Corp Hgb Conc. 31.1 g/dL (33.0-37.0); Mean Corpuscular Volume 91.1 fL (81.0-99.0); Platelet Count 341 10^3/uL (130-400); Red Cell Dist. Width 13.3 % (11.5-14.5)
[2025-09-20] MEDS: ZITHROMAX 500 MG PO (07:38)
[2025-09-20] MEDS: MAGNESIUM OXIDE 400 MG PO (07:39)
[2025-09-20] MEDS: DELTASONE 50 MG PO (07:39)
[2025-09-20 07:41] VITALS: BP 102/51
[2025-09-20 08:05] LABS: Glucose - Point of Care 84 mg/dl (70-99)
[2025-09-20 08:15] LABS: Blood Urea Nitrogen 18 mg/dl (7-17); Calcium 9.3 mg/dl (8.4-10.2); Carbon Dioxide 37 mmol/L (22-30); Chloride 97 mmol/L (98-107); Estimated Creatinine Clearance 101 ml/min; Glucose 95 mg/dl (70-99); Potassium 4.5 mmol/L (3.5-5.1); Sodium 137 mmol/L (135-145); eGFR > 60.00
[2025-09-20] MEDS: SYMBICORT 160/4.5 MCG INHALER 2 PUFF INH ×2 (08:18→19:20)
[2025-09-20] MEDS: NOVOLOG FLEXPEN-LOW RESISTANCE SC (09:13)
[2025-09-20 11:46] LABS: Glucose - Point of Care 168 mg/dl (70-99)
[2025-09-20 12:30] VITALS: BP 120/76; BP 127/73; BP_SYST 92; PULSE 87
[2025-09-20] MEDS: NOVOLOG FLEXPEN-LOW RESISTANCE 1 UNITS SC (12:53)
--- NOTE | 2025-09-20 13:20 | W.PN.HOSP.TC ---
Today's Communication/Plan
-
PT recommending rehab.
Discharge to SNF once bed available
Assessment / Plan
Assessment / Plan
Impression.
65-year-old female with history of COPD, hyperlipidemia, mitral valve prolapse, and intermittent palpitations (normal prior EKG/echo) presents with 1 day of worsening shortness of breath.
On home O? for several months since quitting smoking earlier this year; long-term smoker since age 13.
Uses Combivent and albuterol inhalers; reports poor response recently.
Associated symptoms: bilateral shoulder blade pain, wheezing, mild productive cough with scant clear sputum.
Denies fever, chills, nausea, vomiting, or sick contacts.
ED findings:
Vitals: Afebrile (91.9�F), BP 127/68, HR 102, RR 23, SpO? 97% on 4 L NC.
CXR: No infiltrates, pulmonary edema, or effusion.
ECG: Sinus tachycardia (rate 106), otherwise normal.
Labs: WBC 14.6, Hgb 12.9, Plt 236, bicarb 37, glucose normal. Troponin and BNP negative.
Admitted under hospital service, started on IV steroid, breathing treatment, had an anxiety and was given Xanax.
CT chest shows no PE
But will treat steroid to prednisone
Assessment/plan
Acute on Chronic Hypoxemic Respiratory Failure
Secondary to COPD exacerbation.
Chronic hypoxic, possibly hypercarbic respiratory failure with chronic compensatory metabolic alkalosis.
On home O? at 2�3 L.
Reports worsening shortness of breath for 2�3 days prior to presentation, persistent wheezing, mild nonproductive cough, denies fever.
Home regimen: Anoro and rescue inhaler.
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
Chest X-ray: Bilateral interstitial pattern, possibly chronic; no prior studies for comparison.
COVID and influenza: Negative.
Mild leukocytosis.
No evidence of respiratory distress, but patient is extremely anxious.
Currently on 4 L nasal cannula oxygen.
Exam: Bilateral expiratory wheezing.
Plan:
Continue azithromycin.
Initiate started on IV steroid, then weaned to oral prednisone
Short-acting beta agonist (HOLLAND).
Trial of Mucomyst
CTA chest shows no PE.
Interstitial Pattern on Chest X-ray
Bilateral diffuse interstitial infiltrates.
No prior history of cardiovascular disease.
No evidence of volume overload.
Normal pro-BNP and troponin.
Follow-up imaging as above.
CTA chest shows no PE or acute
Severe Anxiety with Benzodiazepine Dependence
Reports average alprazolam dose ~1 mg prior to admission.
change alprazolam 1 mg every 8 hours as needed.
Prediabetes
Hemoglobin A1c 6.0.
Anticipate hyperglycemia due to corticosteroids.
ISS.
Dyslipidemia
On Vascepa and fish oil prior to admission.
Hyperkalemia.
Monitor
CODE STATUS: Full code
DVT prophylaxis: Lovenox
Diet: Cardiac diet.
Disposition: PT recommending rehab.
Discharge to SNF once bed available
Total time spent on today's encounter was 55 minutes which included time spent in counseling the patient/family regarding diagnosis and treatment plan as listed above, goals of care, and symptom management. Case was discussed with nursing staff,
specialists, and care coordinators/case management. All labs and imaging personally reviewed by me. Remainder the time spent in detailed review of previous records, lab data, imaging, and other medical provider documentation.
Part of this note was created using voice recognition system. Occasional wrong word or �sound alike� substitutions may have inadvertently occurred due to the inherent limitations of voice recognition software. If noted kindly bring it to my
attention for correction.
Anticipated Discharge: Today
Subjective/Interval History
-
Date of Service: September 20, 2025
Patient seen and examined at bedside, denies any chest pain , shortness of breath Improved, no abdominal pain, no nausea, no vomiting, no diarrhea or constipation.
Objective Data
-
Labs:
Laboratory Results
09/20/25
07:11
WBC 7.1
Hgb 12.4
Hct 39.9
Plt Count 341
Sodium 137
Potassium 4.5
Chloride 97 L
Carbon Dioxide 37 H
BUN 18 H
Creatinine 0.4 L
Glucose 95
Calcium 9.3
Vital Signs:
Vital Signs
Temp Pulse Resp BP Pulse Ox
97.5 F 73 16 102/51 99
09/20/25 07:41 09/20/25 11:37 09/20/25 11:37 09/20/25 07:41 09/20/25 08:22
I&O
09/19/25 09/20/25 09/21/25
06:59 06:59 06:59
Intake Total 1140 / 1140 930 / 930
Output Total 400 / 400
Balance 1140 / 1140 530 / 530
Physical Exam
-
General: Well Developed, Well Nourished, No Apparent Distress and Comfortable
HEENT: Normocephalic, Atraumatic, Moist Mucous Membranes, No Ptosis, PERRLA and Nose Appears Normal
Respiratory: Wheezes, Rales and Non Labored Respirations
Cardiac: Regular Rhythm and S1/S2
Breast: Deferred by me
GI: Soft, Nontender, Nondistended and Normal Bowel Sounds
Genito-urinary: No Costovertebral Tender
Musculoskeletal: No Clubbing, No Cyanosis and No Edema
Skin: Warm
Neuro: Awake, Alert, Oriented, AO x 3 and No Motor Deficits
Psych: Calm
[2025-09-20 15:13] VITALS: BP 115/66
[2025-09-20 16:55] LABS: Glucose - Point of Care 236 mg/dl (70-99)
[2025-09-20] MEDS: NOVOLOG FLEXPEN-LOW RESISTANCE 2 UNITS SC (17:17)
[2025-09-20] MEDS: LOVENOX 40 MG SC (17:17)
[2025-09-20 21:23] LABS: Glucose - Point of Care 273 mg/dl (70-99)
[2025-09-20 23:00] VITALS: BP 111/56
[2025-09-21] MEDS: XANAX 1 MG PO ×2 (02:03→14:49)
[2025-09-21] MEDS: NON-FORMULARY ITEM INH ×4 (03:21→19:56)
[2025-09-21 06:30] LABS: Hematocrit 39.0 % (37.0-47.0); Hemoglobin 12.7 g/dL (12.0-16.0); Mean Corp Hgb Conc. 32.6 g/dL (33.0-37.0); Mean Corpuscular Volume 88.0 fL (81.0-99.0); Platelet Count 353 10^3/uL (130-400); Red Cell Dist. Width 13.4 % (11.5-14.5)
[2025-09-21 06:39] LABS: Blood Urea Nitrogen 11 mg/dl (7-17); Calcium 9.2 mg/dl (8.4-10.2); Carbon Dioxide 37 mmol/L (22-30); Chloride 98 mmol/L (98-107); Estimated Creatinine Clearance 101 ml/min; Glucose 95 mg/dl (70-99); Potassium 4.4 mmol/L (3.5-5.1); Sodium 137 mmol/L (135-145); eGFR > 60.00
[2025-09-21] MEDS: DELTASONE 50 MG PO (07:09)
[2025-09-21] MEDS: ZITHROMAX PO ×2 (07:09→07:17)
[2025-09-21] MEDS: MAGNESIUM OXIDE 400 MG PO (07:09)
[2025-09-21 07:36] VITALS: BP 116/60
[2025-09-21 07:59] LABS: Glucose - Point of Care 91 mg/dl (70-99)
[2025-09-21] MEDS: DUONEB 3 ML INH ×2 (08:04→11:46)
[2025-09-21] MEDS: SYMBICORT 160/4.5 MCG INHALER 2 PUFF INH ×2 (08:04→19:52)
[2025-09-21] MEDS: NOVOLOG FLEXPEN-LOW RESISTANCE SC ×2 (08:09→12:16)
--- NOTE | 2025-09-21 11:18 | CM ---
Chart reviewed. Patient agreeable to SNF, requested SNF list. CM provided list to patient bedside. Patient asking for referral to [place] [facility] and will review list for additional options. Referral placed to [place].
Plan: SNF
--- NOTE | 2025-09-21 12:04 | W.PN.HOSP.TC ---
Today's Communication/Plan
-
PT recommending rehab.
Discharge to SNF once bed available
Assessment / Plan
Assessment / Plan
Impression.
65-year-old female with history of COPD, hyperlipidemia, mitral valve prolapse, and intermittent palpitations (normal prior EKG/echo) presents with 1 day of worsening shortness of breath.
On home O? for several months since quitting smoking earlier this year; long-term smoker since age 13.
Uses Combivent and albuterol inhalers; reports poor response recently.
Associated symptoms: bilateral shoulder blade pain, wheezing, mild productive cough with scant clear sputum.
Denies fever, chills, nausea, vomiting, or sick contacts.
ED findings:
Vitals: Afebrile (91.9�F), BP 127/68, HR 102, RR 23, SpO? 97% on 4 L NC.
CXR: No infiltrates, pulmonary edema, or effusion.
ECG: Sinus tachycardia (rate 106), otherwise normal.
Labs: WBC 14.6, Hgb 12.9, Plt 236, bicarb 37, glucose normal. Troponin and BNP negative.
Admitted under hospital service, started on IV steroid, breathing treatment, had an anxiety and was given Xanax.
CT chest shows no PE
But will treat steroid to prednisone.
PT recommends rehab.
Assessment/plan
Acute on Chronic Hypoxemic Respiratory Failure
Secondary to COPD exacerbation.
Chronic hypoxic, possibly hypercarbic respiratory failure with chronic compensatory metabolic alkalosis.
On home O? at 2�3 L.
Reports worsening shortness of breath for 2�3 days prior to presentation, persistent wheezing, mild nonproductive cough, denies fever.
Home regimen: Anoro and rescue inhaler.
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
Chest X-ray: Bilateral interstitial pattern, possibly chronic; no prior studies for comparison.
COVID and influenza: Negative.
Mild leukocytosis.
No evidence of respiratory distress, but patient is extremely anxious.
Currently on 4 L nasal cannula oxygen.
Exam: Bilateral expiratory wheezing.
Plan:
Continue azithromycin.
Initiate started on IV steroid, then weaned to oral prednisone
Short-acting beta agonist (HOLLAND).
Trial of Mucomyst
CTA chest shows no PE.
Interstitial Pattern on Chest X-ray
Bilateral diffuse interstitial infiltrates.
No prior history of cardiovascular disease.
No evidence of volume overload.
Normal pro-BNP and troponin.
Follow-up imaging as above.
CTA chest shows no PE or acute
Severe Anxiety with Benzodiazepine Dependence
Reports average alprazolam dose ~1 mg prior to admission.
change alprazolam 1 mg every 8 hours as needed.
Prediabetes
Hemoglobin A1c 6.0.
Anticipate hyperglycemia due to corticosteroids.
ISS.
Dyslipidemia
On Vascepa and fish oil prior to admission.
Hyperkalemia.
Monitor
CODE STATUS: Full code
DVT prophylaxis: Lovenox
Diet: Cardiac diet.
Disposition: PT recommending rehab.
Discharge to SNF once bed available
Total time spent on today's encounter was 55 minutes which included time spent in counseling the patient/family regarding diagnosis and treatment plan as listed above, goals of care, and symptom management. Case was discussed with nursing staff,
specialists, and care coordinators/case management. All labs and imaging personally reviewed by me. Remainder the time spent in detailed review of previous records, lab data, imaging, and other medical provider documentation.
Part of this note was created using voice recognition system. Occasional wrong word or �sound alike� substitutions may have inadvertently occurred due to the inherent limitations of voice recognition software. If noted kindly bring it to my
attention for correction.
Anticipated Discharge: Today
Subjective/Interval History
-
Date of Service: September 21, 2025
Patient seen and examined at bedside, denies any chest pain , shortness of breath Improved, no abdominal pain, no nausea, no vomiting, no diarrhea or constipation.
Objective Data
-
Labs:
Laboratory Results
09/21/25
06:16
WBC 7.4
Hgb 12.7
Hct 39.0
Plt Count 353
Sodium 137
Potassium 4.4
Chloride 98
Carbon Dioxide 37 H
BUN 11
Creatinine 0.5 L
Glucose 95
Calcium 9.2
Vital Signs:
Vital Signs
Temp Pulse Resp BP Pulse Ox
97.5 F 71 16 116/60 96
09/21/25 07:36 09/21/25 08:05 09/21/25 08:05 09/21/25 07:36 09/21/25 08:05
I&O
09/20/25 09/21/25 09/22/25
06:59 06:59 06:59
Intake Total 930 / 930 940 / 940
Output Total 400 / 400
Balance 530 / 530 940 / 940
Physical Exam
-
General: Well Developed, Well Nourished, No Apparent Distress and Comfortable
HEENT: Normocephalic, Atraumatic, Moist Mucous Membranes, No Ptosis, PERRLA and Nose Appears Normal
Respiratory: Wheezes, Rales and Non Labored Respirations
Cardiac: Regular Rhythm and S1/S2
Breast: Deferred by me
GI: Soft, Nontender, Nondistended and Normal Bowel Sounds
Genito-urinary: No Costovertebral Tender
Musculoskeletal: No Clubbing, No Cyanosis and No Edema
Skin: Warm
Neuro: Awake, Alert, Oriented, AO x 3 and No Motor Deficits
Psych: Calm
[2025-09-21 12:13] LABS: Glucose - Point of Care 110 mg/dl (70-99)
[2025-09-21 15:47] VITALS: BP 111/51
[2025-09-21 16:20] LABS: Glucose - Point of Care 181 mg/dl (70-99)
[2025-09-21] MEDS: SENOKOT-S 1 TABLET PO (16:57)
[2025-09-21] MEDS: NOVOLOG FLEXPEN-LOW RESISTANCE 1 UNITS SC (16:57)
[2025-09-21] MEDS: MIRALAX 17 GRAMS PO (16:57)
[2025-09-21] MEDS: LOVENOX 40 MG SC (17:00)
[2025-09-21 21:26] LABS: Glucose - Point of Care 190 mg/dl (70-99)
[2025-09-21 23:24] VITALS: BP 106/50
[2025-09-22] MEDS: NON-FORMULARY ITEM INH ×4 (04:59→19:53)
[2025-09-22 07:05] VITALS: BP 117/62
[2025-09-22] MEDS: MAGNESIUM OXIDE 400 MG PO (07:10)
[2025-09-22] MEDS: DELTASONE 50 MG PO (07:10)
[2025-09-22] MEDS: NOVOLOG FLEXPEN-LOW RESISTANCE SC ×2 (07:16→12:22)
[2025-09-22 07:22] LABS: Glucose - Point of Care 95 mg/dl (70-99)
[2025-09-22] MEDS: SYMBICORT 160/4.5 MCG INHALER 2 PUFF INH ×2 (08:26→19:52)
[2025-09-22] MEDS: DUONEB 3 ML INH ×4 (08:26→19:52)
[2025-09-22 08:49] LABS: Hematocrit 41.8 % (37.0-47.0); Hemoglobin 13.1 g/dL (12.0-16.0); Mean Corp Hgb Conc. 31.3 g/dL (33.0-37.0); Mean Corpuscular Volume 90.9 fL (81.0-99.0); Platelet Count 389 10^3/uL (130-400); Red Cell Dist. Width 13.3 % (11.5-14.5)
[2025-09-22 09:25] LABS: Blood Urea Nitrogen 13 mg/dl (7-17); Calcium 9.1 mg/dl (8.4-10.2); Carbon Dioxide 36 mmol/L (22-30); Chloride 95 mmol/L (98-107); Estimated Creatinine Clearance 101 ml/min; Glucose 91 mg/dl (70-99); Potassium 4.7 mmol/L (3.5-5.1); Sodium 135 mmol/L (135-145); eGFR > 60.00
[2025-09-22 09:48] VITALS: PULSE 100; O2SAT 91
--- NOTE | 2025-09-22 09:59 | CM ---
Addendum entered by Amena Tate 09/22/25 10:58:
CM spoke with patient at bedside this am. She is no longer interested in going to [facility]. She would prefer SNF in [facility] closer to her home. Referrals placed in [facility] to [facility], [facility] [place],
[facility].
Original Note:
[facility] in [place] has accepted patient.
Phone # for Nurse Report- [phone]
Fax#- [phone]
[2025-09-22] MEDS: XANAX 1 MG PO ×2 (11:44→20:40)
[2025-09-22 11:57] LABS: Glucose - Point of Care 105 mg/dl (70-99)
--- NOTE | 2025-09-22 13:34 | W.PN.HOSP.TC ---
Today's Communication/Plan
-
Continue prednisone
Medically clear for discharge
Discharge to SNF once bed available
Assessment / Plan
Assessment / Plan
Impression.
65-year-old female with history of COPD, hyperlipidemia, mitral valve prolapse, and intermittent palpitations (normal prior EKG/echo) presents with 1 day of worsening shortness of breath.
On home O? for several months since quitting smoking earlier this year; long-term smoker since age 13.
Uses Combivent and albuterol inhalers; reports poor response recently.
Associated symptoms: bilateral shoulder blade pain, wheezing, mild productive cough with scant clear sputum.
Denies fever, chills, nausea, vomiting, or sick contacts.
ED findings:
Vitals: Afebrile (91.9�F), BP 127/68, HR 102, RR 23, SpO? 97% on 4 L NC.
CXR: No infiltrates, pulmonary edema, or effusion.
ECG: Sinus tachycardia (rate 106), otherwise normal.
Labs: WBC 14.6, Hgb 12.9, Plt 236, bicarb 37, glucose normal. Troponin and BNP negative.
Admitted under hospital service, started on IV steroid, breathing treatment, had an anxiety and was given Xanax.
CT chest shows no PE
But will treat steroid to prednisone.
PT recommends rehab.
Assessment/plan
Acute on Chronic Hypoxemic Respiratory Failure
Secondary to COPD exacerbation.
Chronic hypoxic, possibly hypercarbic respiratory failure with chronic compensatory metabolic alkalosis.
On home O? at 2�3 L.
Reports worsening shortness of breath for 2�3 days prior to presentation, persistent wheezing, mild nonproductive cough, denies fever.
Home regimen: Anoro and rescue inhaler.
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
Chest X-ray: Bilateral interstitial pattern, possibly chronic; no prior studies for comparison.
COVID and influenza: Negative.
Mild leukocytosis.
No evidence of respiratory distress, but patient is extremely anxious.
Currently on 4 L nasal cannula oxygen.
Exam: Bilateral expiratory wheezing.
Plan:
Continue azithromycin.
Initiate started on IV steroid, then weaned to oral prednisone
Short-acting beta agonist (HOLLAND).
Trial of Mucomyst
CTA chest shows no PE.
Interstitial Pattern on Chest X-ray
Bilateral diffuse interstitial infiltrates.
No prior history of cardiovascular disease.
No evidence of volume overload.
Normal pro-BNP and troponin.
Follow-up imaging as above.
CTA chest shows no PE or acute
Severe Anxiety with Benzodiazepine Dependence
Reports average alprazolam dose ~1 mg prior to admission.
change alprazolam 1 mg every 8 hours as needed.
Prediabetes
Hemoglobin A1c 6.0.
Anticipate hyperglycemia due to corticosteroids.
ISS.
Dyslipidemia
On Vascepa and fish oil prior to admission.
Hyperkalemia.
Monitor
CODE STATUS: Full code
DVT prophylaxis: Lovenox
Diet: Cardiac diet.
Disposition: Continue prednisone
Medically clear for discharge
Discharge to SNF once bed available
Total time spent on today's encounter was 55 minutes which included time spent in counseling the patient/family regarding diagnosis and treatment plan as listed above, goals of care, and symptom management. Case was discussed with nursing staff,
specialists, and care coordinators/case management. All labs and imaging personally reviewed by me. Remainder the time spent in detailed review of previous records, lab data, imaging, and other medical provider documentation.
Part of this note was created using voice recognition system. Occasional wrong word or �sound alike� substitutions may have inadvertently occurred due to the inherent limitations of voice recognition software. If noted kindly bring it to my
attention for correction.
Anticipated Discharge: Today
Subjective/Interval History
-
Date of Service: September 22, 2025
Patient seen and examined at bedside, denies any chest pain , shortness of breath Improved, no abdominal pain, no nausea, no vomiting, no diarrhea or constipation.
Pending placement.
Objective Data
-
Labs:
Laboratory Results
09/22/25
08:01
WBC 9.3
Hgb 13.1
Hct 41.8
Plt Count 389
Sodium 135
Potassium 4.7
Chloride 95 L
Carbon Dioxide 36 H
BUN 13
Creatinine 0.5 L
Glucose 91
Calcium 9.1
Vital Signs:
Vital Signs
Temp Pulse Resp BP Pulse Ox
97.7 F 79 18 117/62 93
09/22/25 07:05 09/22/25 11:44 09/22/25 11:44 09/22/25 07:05 09/22/25 11:44
I&O
09/21/25 09/22/25 09/23/25
06:59 06:59 06:59
Intake Total 940 / 940 2039
Balance 940 / 940 2039
Physical Exam
-
General: Well Developed, Well Nourished, No Apparent Distress and Comfortable
HEENT: Normocephalic, Atraumatic, Moist Mucous Membranes, No Ptosis, PERRLA and Nose Appears Normal
Respiratory: Wheezes, Rales and Non Labored Respirations
Cardiac: Regular Rhythm and S1/S2
Breast: Deferred by me
GI: Soft, Nontender, Nondistended and Normal Bowel Sounds
Genito-urinary: No Costovertebral Tender
Musculoskeletal: No Clubbing, No Cyanosis and No Edema
Skin: Warm
Neuro: Awake, Alert, Oriented, AO x 3 and No Motor Deficits
Psych: Calm
[2025-09-22 15:05] VITALS: BP 124/72
[2025-09-22 15:42] VITALS: BP 124/72
[2025-09-22 16:05] LABS: Glucose - Point of Care 189 mg/dl (70-99)
[2025-09-22] MEDS: LOVENOX 40 MG SC (16:51)
[2025-09-22] MEDS: NOVOLOG FLEXPEN-LOW RESISTANCE 1 UNITS SC (16:51)
[2025-09-22 22:00] LABS: Glucose - Point of Care 167 mg/dl (70-99)
[2025-09-22 23:34] VITALS: BP 132/68
[2025-09-23 07:05] VITALS: BP 122/55
[2025-09-23] MEDS: DELTASONE 40 MG PO (07:29)
[2025-09-23] MEDS: MAGNESIUM OXIDE 400 MG PO (07:29)
[2025-09-23] MEDS: SYMBICORT 160/4.5 MCG INHALER 2 PUFF INH ×2 (07:41→20:05)
[2025-09-23] MEDS: DUONEB 3 ML INH ×3 (07:41→20:05)
[2025-09-23] MEDS: NON-FORMULARY ITEM INH ×2 (07:42→11:49)
[2025-09-23 07:54] LABS: Glucose - Point of Care 80 mg/dl (70-99)
[2025-09-23] MEDS: NOVOLOG FLEXPEN-LOW RESISTANCE SC ×2 (08:48→12:02)
[2025-09-23] MEDS: XANAX 1 MG PO ×2 (10:33→22:32)
[2025-09-23 11:58] LABS: Glucose - Point of Care 121 mg/dl (70-99)
--- NOTE | 2025-09-23 12:10 | W.PN.HOSP.TC ---
Today's Communication/Plan
-
Continue prednisone tapering
Medically clear for discharge
Discharge to SNF once bed available
Assessment / Plan
Assessment / Plan
Impression.
65-year-old female with history of COPD, hyperlipidemia, mitral valve prolapse, and intermittent palpitations (normal prior EKG/echo) presents with 1 day of worsening shortness of breath.
On home O? for several months since quitting smoking earlier this year; long-term smoker since age 13.
Uses Combivent and albuterol inhalers; reports poor response recently.
Associated symptoms: bilateral shoulder blade pain, wheezing, mild productive cough with scant clear sputum.
Denies fever, chills, nausea, vomiting, or sick contacts.
ED findings:
Vitals: Afebrile (91.9�F), BP 127/68, HR 102, RR 23, SpO? 97% on 4 L NC.
CXR: No infiltrates, pulmonary edema, or effusion.
ECG: Sinus tachycardia (rate 106), otherwise normal.
Labs: WBC 14.6, Hgb 12.9, Plt 236, bicarb 37, glucose normal. Troponin and BNP negative.
Admitted under hospital service, started on IV steroid, breathing treatment, had an anxiety and was given Xanax.
CT chest shows no PE
But will treat steroid to prednisone.
PT recommends rehab.
Assessment/plan
Acute on Chronic Hypoxemic Respiratory Failure
Secondary to COPD exacerbation.
Chronic hypoxic, possibly hypercarbic respiratory failure with chronic compensatory metabolic alkalosis.
On home O? at 2�3 L.
Reports worsening shortness of breath for 2�3 days prior to presentation, persistent wheezing, mild nonproductive cough, denies fever.
Home regimen: Anoro and rescue inhaler.
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
Chest X-ray: Bilateral interstitial pattern, possibly chronic; no prior studies for comparison.
COVID and influenza: Negative.
Mild leukocytosis.
No evidence of respiratory distress, but patient is extremely anxious.
Currently on 4 L nasal cannula oxygen.
Exam: Bilateral expiratory wheezing.
Plan:
Continue azithromycin.
Initiate started on IV steroid, then weaned to oral prednisone
Short-acting beta agonist (HOLLAND).
Trial of Mucomyst
CTA chest shows no PE.
Interstitial Pattern on Chest X-ray
Bilateral diffuse interstitial infiltrates.
No prior history of cardiovascular disease.
No evidence of volume overload.
Normal pro-BNP and troponin.
Follow-up imaging as above.
CTA chest shows no PE or acute
Severe Anxiety with Benzodiazepine Dependence
Reports average alprazolam dose ~1 mg prior to admission.
change alprazolam 1 mg every 8 hours as needed.
Prediabetes
Hemoglobin A1c 6.0.
Anticipate hyperglycemia due to corticosteroids.
ISS.
Dyslipidemia
On Vascepa and fish oil prior to admission.
Hyperkalemia.
Monitor
CODE STATUS: Full code
DVT prophylaxis: Lovenox
Diet: Cardiac diet.
Disposition: Continue prednisone tapering
Medically clear for discharge
Discharge to SNF once bed available
Total time spent on today's encounter was 55 minutes which included time spent in counseling the patient/family regarding diagnosis and treatment plan as listed above, goals of care, and symptom management. Case was discussed with nursing staff,
specialists, and care coordinators/case management. All labs and imaging personally reviewed by me. Remainder the time spent in detailed review of previous records, lab data, imaging, and other medical provider documentation.
Part of this note was created using voice recognition system. Occasional wrong word or �sound alike� substitutions may have inadvertently occurred due to the inherent limitations of voice recognition software. If noted kindly bring it to my
attention for correction.
Anticipated Discharge: Today
Subjective/Interval History
-
Date of Service: September 23, 2025
Patient seen and examined at bedside, denies any chest pain , shortness of breath Improved, no abdominal pain, no nausea, no vomiting, no diarrhea or constipation.
Objective Data
-
Vital Signs:
Vital Signs
Temp Pulse Resp BP Pulse Ox
97.7 F 78 16 122/55 94
09/23/25 07:05 09/23/25 11:53 09/23/25 11:53 09/23/25 07:05 09/23/25 11:53
I&O
09/22/25 09/23/25 09/24/25
06:59 06:59 06:59
Intake Total 20390 / 2279
Balance 2039
Physical Exam
-
General: Well Developed, Well Nourished, No Apparent Distress and Comfortable
HEENT: Normocephalic, Atraumatic, Moist Mucous Membranes, No Ptosis, PERRLA and Nose Appears Normal
Respiratory: Wheezes, Rales and Non Labored Respirations
Cardiac: Regular Rhythm and S1/S2
Breast: Deferred by me
GI: Soft, Nontender, Nondistended and Normal Bowel Sounds
Genito-urinary: No Costovertebral Tender
Musculoskeletal: No Clubbing, No Cyanosis and No Edema
Skin: Warm
Neuro: Awake, Alert, Oriented, AO x 3 and No Motor Deficits
Psych: Calm
--- NOTE | 2025-09-23 15:04 | CM ---
Addendum entered by Amena Tate 09/23/25 17:34:
Spoke with Admissions Liaison at [facility]. She will follow up in the am re bed availability. Patient also requested additional referrals made to SNF and [facility] in [place]. Referrals placed in [facility].
Original Note:
Working on SNF placement for patient. She has been accepted at [facility], [facility] and [facility]. Patient now declining these facilities. She has requested referral to [facility]. Referral
placed in [facility].
Plan: SNF
[2025-09-23 15:05] VITALS: BP 118/75
[2025-09-23] MEDS: DUONEB INH (15:57)
[2025-09-23 16:05] LABS: Glucose - Point of Care 174 mg/dl (70-99)
[2025-09-23] MEDS: LOVENOX 40 MG SC (16:09)
[2025-09-23] MEDS: NOVOLOG FLEXPEN-LOW RESISTANCE 1 UNITS SC (16:09)
[2025-09-23 21:56] LABS: Glucose - Point of Care 182 mg/dl (70-99)
[2025-09-23 23:36] VITALS: BP 120/56
[2025-09-24] MEDS: XANAX 0.5 MG PO (01:33)
[2025-09-24] MEDS: NON-FORMULARY ITEM INH (02:43)
[2025-09-24 07:10] LABS: Glucose - Point of Care 95 mg/dl (70-99)
[2025-09-24] MEDS: NOVOLOG FLEXPEN-LOW RESISTANCE SC (07:14)
[2025-09-24 08:10] VITALS: BP 115/60
[2025-09-24] MEDS: MAGNESIUM OXIDE 400 MG PO (08:15)
[2025-09-24] MEDS: DELTASONE 40 MG PO (08:15)
[2025-09-24] MEDS: SYMBICORT 160/4.5 MCG INHALER 2 PUFF INH (08:31)
[2025-09-24] MEDS: DUONEB 3 ML INH ×3 (08:32→16:40)
[2025-09-24 09:19] LABS: Hematocrit 40.5 % (37.0-47.0); Hemoglobin 12.7 g/dL (12.0-16.0); Mean Corp Hgb Conc. 31.4 g/dL (33.0-37.0); Mean Corpuscular Volume 92.3 fL (81.0-99.0); Platelet Count 385 10^3/uL (130-400); Red Cell Dist. Width 13.3 % (11.5-14.5)
[2025-09-24 10:16] LABS: Blood Urea Nitrogen 18 mg/dl (7-17); Calcium 9.1 mg/dl (8.4-10.2); Carbon Dioxide 36 mmol/L (22-30); Chloride 98 mmol/L (98-107); Estimated Creatinine Clearance 101 ml/min; Glucose 87 mg/dl (70-99); Potassium 4.8 mmol/L (3.5-5.1); Sodium 136 mmol/L (135-145); eGFR > 60.00
--- NOTE | 2025-09-24 11:11 | W.PN.HOSP.TC ---
Today's Communication/Plan
-
Discharge panning today
Assessment / Plan
Assessment / Plan
Physical exam:
General: Acute on chronically ill
HEENT: Normocephalic, Atraumatic and Moist Mucous Membranes
Respiratory: Decreased breath sounds bilaterally; Negative Wheezes, Rales or Rhonchi
Cardiac: Regular Rhythm and S1/S2
GI: Soft, Nontender and Nondistended
Musculoskeletal: No Clubbing, No Cyanosis and No Edema
Neuro: Awake, Alert and Oriented, no neurological deficit
Psych: Calm
A/P:
Impression.
65-year-old female with history of COPD, hyperlipidemia, mitral valve prolapse, and intermittent palpitations (normal prior EKG/echo) presents with 1 day of worsening shortness of breath.
On home O? for several months since quitting smoking earlier this year; long-term smoker since age 13.
Uses Combivent and albuterol inhalers; reports poor response recently.
Associated symptoms: bilateral shoulder blade pain, wheezing, mild productive cough with scant clear sputum.
Denies fever, chills, nausea, vomiting, or sick contacts.
ED findings:
Vitals: Afebrile (91.9�F), BP 127/68, HR 102, RR 23, SpO? 97% on 4 L NC.
CXR: No infiltrates, pulmonary edema, or effusion.
ECG: Sinus tachycardia (rate 106), otherwise normal.
Labs: WBC 14.6, Hgb 12.9, Plt 236, bicarb 37, glucose normal. Troponin and BNP negative.
Admitted under hospital service, started on IV steroid, breathing treatment, had an anxiety and was given Xanax.
CT chest shows no PE
But will treat steroid to prednisone.
PT recommends rehab.
Assessment/plan
Acute on Chronic Hypoxemic Respiratory Failure
Secondary to COPD exacerbation.
Chronic hypoxic, possibly hypercarbic respiratory failure with chronic compensatory metabolic alkalosis.
On home O? at 2�3 L.
Reports worsening shortness of breath for 2�3 days prior to presentation, persistent wheezing, mild nonproductive cough, denies fever.
Home regimen: Anoro and rescue inhaler.
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
Chest X-ray: Bilateral interstitial pattern, possibly chronic; no prior studies for comparison.
COVID and influenza: Negative.
Mild leukocytosis.
No evidence of respiratory distress, but patient is extremely anxious.
Currently on 4 L nasal cannula oxygen.
Exam: Bilateral expiratory wheezing.
Plan:
Continue azithromycin.
Initiate started on IV steroid, then weaned to oral prednisone
Short-acting beta agonist (HOLLAND).
Trial of Mucomyst
CTA chest shows no PE.
Interstitial Pattern on Chest X-ray
Bilateral diffuse interstitial infiltrates.
No prior history of cardiovascular disease.
No evidence of volume overload.
Normal pro-BNP and troponin.
Follow-up imaging as above.
CTA chest shows no PE or acute
Severe Anxiety with Benzodiazepine Dependence
Reports average alprazolam dose ~1 mg prior to admission.
change alprazolam 1 mg every 8 hours as needed.
Prediabetes
Hemoglobin A1c 6.0.
Anticipate hyperglycemia due to corticosteroids.
ISS.
Dyslipidemia
On Vascepa and fish oil prior to admission.
Hyperkalemia.
Monitor
CODE STATUS: Full code
DVT prophylaxis: Lovenox
Diet: Cardiac diet.
Disposition: Continue prednisone tapering
Medically clear for discharge
Discharge to SNF today
Total time spent on today's encounter was 35 minutes which included time spent in counseling the patient/family regarding diagnosis and treatment plan as listed above, goals of care, and symptom management. Case was discussed with nursing staff,
specialists, and care coordinators/case management. All labs and imaging personally reviewed by me. Remainder the time spent in detailed review of previous records, lab data, imaging, and other medical provider documentation.
Part of this note was created using voice recognition system. Occasional wrong word or �sound alike� substitutions may have inadvertently occurred due to the inherent limitations of voice recognition software. If noted kindly bring it to my
attention for correction.
Anticipated Discharge: Today
Subjective/Interval History
-
Date of Service: September 24, 2025
Patient still has some cough and shortness of breath although overall improving. Afebrile
Objective Data
-
Labs:
Laboratory Results
09/24/25
08:42
WBC 10.8
Hgb 12.7
Hct 40.5
Plt Count 385
Sodium 136
Potassium 4.8
Chloride 98
Carbon Dioxide 36 H
BUN 18 H
Creatinine 0.5 L
Glucose 87
Calcium 9.1
Vital Signs:
Vital Signs
Temp Pulse Resp BP Pulse Ox
97.7 F 76 16 115/60 98
09/24/25 08:10 09/24/25 08:32 09/24/25 08:32 09/24/25 08:10 09/24/25 08:32
I&O
09/23/25 09/24/25 09/25/25
06:59 06:59 06:59
Intake Total 2280 / 2280 2820 / 2820 960 / 960
Balance 2280 / 2280 2820 / 2820 960 / 960
--- NOTE | 2025-09-24 11:30 | W.DCSUMMARY ---
Discharge Summary
Discharge Data
Date of Admission: 09/17/25
Date of Discharge: 09/24/25
Total time spent discharging patient (in min): 34
-
Pending Results: No
Hospital Course
Patient 65-year-old female with history of COPD, mitral valve prolapse, hyperlipidemia, chronic hypoxic respiratory failure on home oxygen, anxiety, presented to the hospital with COPD exacerbation. She was treated with IV steroids, completed a
course of oral azithromycin, and bronchodilators. Blood sugars were slightly elevated and exacerbated by steroids and she had a hemoglobin A1c came back at 6 indicating prediabetes and recommended lifestyle changes modifications. She had a D-dimer
normal for her age, she had a normal troponin, and normal BNP. She had mild hyperkalemia that resolved. She was noted to have significant anxiety contributory to her presentation and she has been kept on her benzodiazepines with careful attention
of her respiratory status. She was able to be transition to oral steroids to continue tapering course as outpatient. She was able to be tapered to her home oxygen requirements as well. PT recommended skilled rehab. She is hemodynamically stable
and afebrile and feels symptomatically improved. She is going to be discharged to skilled rehab today relatively stable condition.
Discharge duration: 34 minutes
Discharge Plan
-
Patient Disposition: [facility]/SNF
Discharge Diagnosis/Procedures: Acute on Chronic Hypoxemic Respiratory Failure
Interstitial Pattern on Chest X-ray
Severe Anxiety with Benzodiazepine Dependence
Diet: Low Cholesterol
Activity: As tolerated
Blood Work: Please PCP to order CBC, BMP within 1 week
Referrals:
PCP [Other] - in one to two weeks
Yusef Pierce MD [Non-Admitting Privileges, Internal Medicine] - in two to four weeks
Prescriptions:
New
acetaminophen 325 mg Tablet
650 mg PO Q4HPRN PRN (Reason: mild pain/PAUL/temp> 100.4F) Qty: 0 0RF
ipratropium-albuterol 0.5 mg-3 mg(2.5 mg base)/3 mL Solution For Nebulization
3 ml inhalation R Q4HPRN PRN (Reason: wheezing/SOB) Qty: 0 0RF
dextromethorphan-guaifenesin 10-100 mg/5 mL Syrup
5 ml PO Q4HPRN PRN (Reason: cough) Qty: 0 0RF
magnesium oxide 400 mg (241.3 mg magnesium) Tablet
400 mg PO DAILY Qty: 0 0RF
budesonide-formoterol [Symbicort] 160-4.5 mcg/actuation Hfa Aerosol Inhaler
2 puff inhalation R BID Qty: 0 0RF
prednisone 10 mg tablet
See Taper PO DAILY Qty: 30 0RF
Taper: Prednisone DC Starting at 40 mg daily
40 mg Daily for 3 Days and 0 Hour
30 mg Daily for 3 Days and 0 Hour
20 mg Daily for 3 Days and 0 Hour
10 mg Daily for 3 Days and 0 Hour
Continued
albuterol sulfate 90 mcg/actuation HFA aerosol inhaler
2 inh INHALATION R Q6
Combivent Respimat 20-100 mcg/actuation mist
2 puff INHALATION R Q6
icosapent ethyl 1 gram Capsule
2 g PO BID
cod liver oil Oil
5 ml PO DAILY
Magtein
1 tab PO DAILY
Changed
alprazolam 1 mg Tablet
1 mg PO DAILYPRN PRN (Reason: anxiety) Qty: 2 0RF
Discharge Orders:
Discharge Patient (As Directed); Ordered 09/24/25
Ordered By: Aashish Oh
Discharge Date and Time
Discharge Date/Time: 09/24/25 18:56
Print Language: ALBANIAN
[2025-09-24] MEDS: XANAX 1 MG PO ×2 (11:35→18:06)
--- NOTE | 2025-09-24 12:02 | CM ---
Patient is being transferred to [facility] unit today. [facility] can accept patient after 3m today. Discussed transfer arrangements with patient. IMM given.
[facility]
[address] [place] [address]
Tel# for Nurse report- [phone]

Plan: [facility] unit today
[2025-09-24 12:07] LABS: Glucose - Point of Care 227 mg/dl (70-99)
[2025-09-24] MEDS: NOVOLOG FLEXPEN-LOW RESISTANCE 2 UNITS SC (13:36)
[2025-09-24 16:09] VITALS: BP 112/53
--- NOTE | 2025-09-24 16:53 | PTCARENOTE ---
Retrieved items patient had in the safe at security ($499 and a checkbook). Upon returning it to her, she accused this nurse of stealing $50. Security came up with the original bag and showed her that she signed that I placed $499 in the bag. She
then stated that I breached her privacy and went into her bag and took the money out and sent it to security. Despite my explaination that I did not take the money rather she handed it to me and I offered to place it in the safe, she continued to
accuse me and stated I was 'gaslighting her'. I then showed her the medication that I had sent to pharmacy with her permission on her day of admission for safekeeping. I told her that in preparation for discharge I had retrieved them for her and
would have her nurse give them to her when her transportation was here. She became irate and demanded I leave them in her possession now because she said myself or the nurse might take some of her medication. I did reiterate to the pt that she
should not take any of the medication as it would be unsafe and she said she wouldn't. I gave her a copy of the reciept for the medication that pharmacy and myself counted which matched what was sent down. The medication that was sent down on day of
admission was counted in front of her with another RN and myself.. She then accused me of taking the medication out of her purse when she was admitted. I gave her contact information for her to use after discharge if she wanted to further discuss
this. I offered her an claims administrator above me to speak to and she declined stating she will be writing a letter.
[2025-09-24 17:11] LABS: Glucose - Point of Care 172 mg/dl (70-99)
[2025-09-24] MEDS: LOVENOX 40 MG SC (17:33)
[2025-09-24] MEDS: NOVOLOG FLEXPEN-LOW RESISTANCE 1 UNITS SC (17:33)
== END 2025-09-24 18:56 | DRG 190 ==
LOC: 4 WEST ACU 07:33
PROVIDERS: General Practice; Internal Medicine; ADMITTING PHYSICIAN Internal Medicine; ATTENDING PHYSICIAN Hospitalist; EMERGENCY PHYSICIAN Student in an Organized Health Care Education/Training Program
DX: J44.1 Chronic obstructive pulmonary disease with (acute) exacerbation (principal); J96.21 Acute and chronic respiratory failure with hypoxia; F13.20 Sedative, hypnotic or anxiolytic dependence, uncomplicated; F41.9 Anxiety disorder, unspecified; Z87.891 Personal history of nicotine dependence; E78.00 Pure hypercholesterolemia, unspecified; Z88.2 Allergy status to sulfonamides; Z99.81 Dependence on supplemental oxygen; E87.5 Hyperkalemia; T38.0X5A Adverse effect of glucocorticoids and synthetic analogues, initial encounter
CPT/HCPCS: 71046; 71275; 80048; 80053; 82962; 83036; 83880; 84443; 84484; 85025; 85027; 85379; 85610; 86803; 87502; 87811; 93005; 94640; 96374; 96375; 97116; 97163; 97530; 99285; Q9967